=== PATIENT | male | born 1975 | race Caucasian/White ===

== ENCOUNTER → 2020-07-16 | Outpatient (CLI) | payer OTHER ==
--- NOTE | 2020-07-16 16:53 | RADIOLOGY REPORT (SQ) ---
EXAM DESCRIPTION: MRI LUMBAR SPINE WITHOUT IMAGES COMPLETED DATE/TIME: 07/16/2020 9:27 am REASON FOR STUDY: (M54.42)LUMBAGO WITH SCIATICA, LEFT SIDE M54.42 LUMBAGO WITH SCIATICA, LEFT SIDE COMPARISON: None. TECHNIQUE: Sagittal and Axial imaging includes T1, T2, STIR and gradient echo sequences. Coronal T2/ HASTE imaging. LIMITATIONS: None. FINDINGS: VISUALIZED UPPER ABDOMEN: Limited evaluation. No acute or suspicious findings suggested. SEGMENTATION: No transitional anatomy. The lowest well-developed disc space is labeled L5-S1. ALIGNMENT: Anatomic. VERTEBRAE: Intact. BONE MARROW: Acute and chronic Modic endplate changes with bony endplate edema at L4-5. DISC SIGNAL: Disc desiccation and height loss greatest at L4-5 and L5-S1. POSTERIOR ELEMENTS: Generally intact. No pars defect evident. HARDWARE: None in the spine. CORD AND CONUS: Normal in size and signal intensity. Conus medullaris terminates at T12-L1. SOFT TISSUES: No aortic aneurysm seen. No bulky retroperitoneal adenopathy or mass. No paraspinal mas s or fluid. L1-L2: No significant spinal stenosis or exit foraminal stenosis. L2-L3: No significant spinal stenosis or exit foraminal stenosis. L3-L4: Small circumferential disc bulge, mild asymmetric on the right. There is mild canal stenosis and lateral recess narrowing with contact of the traversing nerve roots. There is disc desiccation a s well. There is mild bilateral neural foraminal narrowing secondary to disc disease. L4-L5: Disc desiccation height loss with bony endplate edema at L4-5. There is a circumferential pos terior disc bulge with resultant mild canal stenosis and bilateral lateral recess narrowing with cont act of the traversing nerve roots. There is bilateral neural foraminal narrowing, mild on the right and [id number]-qhgabkly on the left. L5-S1: Disc height loss with no significant spinal canal stenosis. Mild right and oiab-[id number]-[id number] l eft neural foraminal narrowing secondary to disc and facet disease. LOWER THORACIC: Incompletely imaged. No stenosis seen. SACRUM: Visualized upper sacrum intact. OTHER: No other significant findings. IMPRESSION: 1. Degenerative disc disease with end-plate edema and disc height loss greatest at L4-5 . 2. No high-grade spinal canal stenosis. Circumferential disc at L4-5 with bilateral lateral recess narrowing and contact of the traversing nerve roots. Mild right and rbow-[id number] left neural for aminal narrowing at that level. 3. Additional level specific findings as above. TECHNICAL DOCUMENTATION: JOB ID: [id number] [employer]- All Rights Reserved Reading location - IP/workstation name: [email or web address]
== END ==
LOC: RAD 08:41
PROVIDERS: ATTEND Family Medicine
DX: M51.16 Intervertebral disc disorders with radiculopathy, lumbar region (principal); M48.061 Spinal stenosis, lumbar region without neurogenic claudication
CPT/HCPCS: 72148